=== PATIENT | female | born 1970 | race Caucasian/White ===

== ENCOUNTER 2016-11-28 02:04 | Emergency (ER) | payer BC, OTHER ==
[~2016-11-28] VITALS: Ht 167.6 cm; Wt 91.3 kg
[~2016-11-28 02:04] MED LIST: DULE200A INH; ORPH100T PO; PERC10TA27 PO; WELL150T PO
[2016-11-28 02:08] VITALS: BP 105/59; PULSE 71; RESP 16; TEMP 98.1; O2SAT 97
[2016-11-28] MEDS ORDERED: ALBU6.7H INH (02:22)
[2016-11-28] MEDS ORDERED: PRED5TAB PO (02:22)
--- NOTE | 2016-11-28 02:22 | PD ---
HPI Chief Complaint: Systems Operator Problem/Complaint Time Seen by Provider: 02:12 Travel History International Travel<30 days: No Contact w/Intl Traveler<30days: No History of Present Illness HPI patient is a 46-year-old female presents emergency department for evaluation of vaginal bleeding for the past month. Patient states that her periods are fairly regular but this last was been going on for the past month she states over the past 2 days she is bleeding through a tampon and pad approximately every hour. She states that she's also been feeling somewhat weak. Denies any presyncopal symptoms. Denies possibility for . Denies any fever. Does not know what age her mother went through menopause. PFSH Past Medical History Asthma: Yes Autoimmune Disease: No Anxiety: No Depression: Yes Cancer: No Cardiovascular Problems: No COPD: Yes ("CHRONIC BRONCHITIS") Cerebrovascular Accident: Yes (tia's) Diminished Hearing: No Endocrine: No Fibromyalgia: Yes Gastrointestinal Disorders: Yes (GASTROPARESES) GERD: Yes Genitourinary: No Headaches: Yes Immune Disorder: No Musculoskeletal: Yes Neurologic: Yes Psychiatric: Yes Reproductive: No Immunizations Current: Yes Migraines: Yes Ulcer: Yes (GASTRIC) : 3 Para: 2 Miscarriage: 1 Ovarian Cysts: Yes Tubal Ligation: Yes Past Surgical History Gynecologic Surgery: Yes (TUBAL) Other Surgery: Yes Social History Alcohol Use: No Tobacco Use: No Substance Use: No Allergies-Medications (Allergen,Severity, Reaction): Coded Allergies: morphine (Unverified Allergy, Intermediate, HIVES, 11/28/16) . *MDRO Multi-Drug Resistant Organism (Unverified Allergy, Unknown, 11/28/16) MRSA 2013 Uncoded Allergies: HYDROCODINE (Allergy, Intermediate, 12/18/14) . Reported Meds & Prescriptions Reported Meds & Active Scripts Active Reported Proventil Hfa 6.7 GM Inh (Albuterol Sulfate) 90 Mcg/Act Aer 2 Puff INH Q6H PRN Prednisone 5 Mg Tab 5 Mg PO DAILY Review of Systems Except as stated in HPI: all other systems reviewed are Neg Physical Exam Narrative GENERAL: Well-developed well-nourished no obvious distress SKIN: Focused skin assessment warm/dry. HEAD: Atraumatic. Normocephalic. EYES: Pupils equal and round. No scleral icterus. No injection or drainage. ENT: No nasal bleeding or discharge. Mucous membranes pink and moist. NECK: Trachea midline. No JVD. CARDIOVASCULAR: Regular rate and rhythm. No murmur appreciated. RESPIRATORY: No accessory muscle use. Clear to auscultation. Breath sounds equal bilaterally. GASTROINTESTINAL: Abdomen soft, non-tender, nondistended. Hepatic and splenic margins not palpable. GENITOURINARY: Recommended to but strongly deferred by patient. MUSCULOSKELETAL: No obvious deformities. No clubbing. No cyanosis. No edema. NEUROLOGICAL: Awake and alert. No obvious cranial nerve deficits. Motor grossly within normal limits. Normal speech. PSYCHIATRIC: Appropriate mood and affect; insight and judgment normal. Data Data Last Documented VS Vital Signs Date Time Temp Pulse Resp B/P (MAP) Pulse Ox O2 Delivery O2 Flow Rate FiO2 11/28/16 04:12 72 18 98 11/28/16 04:05 Room Air 11/28/16 02:08 98.1 Orders Orders Urinalysis - C+S If Indicated (11/28/16 02:12) Ed Urine Pregnancytest Poc (11/28/16 02:12) Complete Blood Count With Diff (11/28/16 02:12) Basic Metabolic Panel (Bmp) (11/28/16 02:12) Labs Laboratory Tests Test 11/28/16 02:35 11/28/16 03:00 White Blood Count 6.2 TH/MM3 Red Blood Count 4.19 MIL/MM3 Hemoglobin 12.5 GM/DL Hematocrit 37.1 % Mean Corpuscular Volume 88.5 FL Mean Corpuscular Hemoglobin 29.8 PG Mean Corpuscular Hemoglobin Concent 33.7 % Red Cell Distribution Width 15.3 % Platelet Count 306 TH/MM3 Mean Platelet Volume 7.4 FL Neutrophils (%) (Auto) 47.5 % Lymphocytes (%) (Auto) 39.8 % Monocytes (%) (Auto) 10.4 % Eosinophils (%) (Auto) 1.4 % Basophils (%) (Auto) 0.9 % Neutrophils # (Auto) 2.9 TH/MM3 Lymphocytes # (Auto) 2.5 TH/MM3 Monocytes # (Auto) 0.6 TH/MM3 Eosinophils # (Auto) 0.1 TH/MM3 Basophils # (Auto) 0.1 TH/MM3 CBC Comment DIFF FINAL Differential Comment Blood Urea Nitrogen 21 MG/DL Creatinine 1.10 MG/DL Random Glucose 93 MG/DL Calcium Level 7.8 MG/DL Sodium Level 139 MEQ/L Potassium Level 4.3 MEQ/L Chloride Level 106 MEQ/L Carbon Dioxide Level 29.3 MEQ/L Anion Gap 4 MEQ/L Estimat Glomerular Filtration Rate 53 ML/MIN Urine Color YELLOW Urine Turbidity CLEAR Urine pH 5.5 Urine Specific Wrights 1.027 Urine Protein NEG mg/dL Urine Glucose (UA) NEG mg/dL Urine Ketones NEG mg/dL Urine Occult Blood MOD Urine Nitrite NEG Urine Bilirubin NEG Urine Leukocyte Esterase NEG Urine RBC 10-14 /hpf Urine Squamous Epithelial Cells 0-5 /hpf Urine Amorphous Sediment SMALL Urine Mucus FEW /lpf Microscopic Urinalysis Comment CULT NOT INDICATED MDM Medical Decision Making Medical Screen Exam Complete: Yes Emergency Medical Condition: Yes Differential Diagnosis anemia, dysfunctional uterine bleeding, perimenopausal bleeding, Narrative Course patient roomed emergency department, no anemia on blood work, test negative. Discussed need for follow-up with an [facility] for further workup. Discussed that she will need cancer workup prior to starting any oral contraceptives which may be helpful to control her bleeding. She verbalized understanding and agreement. She stable for discharge at this time. Diagnosis Primary Impression: DUB (dysfunctional uterine bleeding) Referrals: Rosemary Garcia MD Disposition: 01 DISCHARGE HOME Condition: Stable Pravin Cardona MD Nov 28, 2016 02:22
[2016-11-28 02:48] LABS: AUTOMATED NEUTROPHIL # 2.9 TH/MM3 (1.8-7.7); BASOPHIL # 0.1 TH/MM3 (0-0.2); BASOPHIL % 0.9 % (0.0-2.0); EOSINOPHIL # 0.1 TH/MM3 (0-0.4); EOSINOPHIL % 1.4 % (0.0-4.0); HEMATOCRIT 37.1 % (35.0-46.0); HEMO FLAGS DIFF FINAL; LYMPH % 39.8 % (9.0-44.0); LYMPHOCYTE # 2.5 TH/MM3 (1.0-4.8); MEAN CELL VOLUME 88.5 FL (80.0-100.0); MEAN CORPUSCULAR HEMOGLOBIN 29.8 PG (27.0-34.0); MEAN CORPUSCULAR HGB CONC 33.7 % (32.0-36.0); MONO % 10.4 % (0.0-8.0); NEUT % 47.5 % (16.0-70.0); PLATELET COUNT 306 TH/MM3 (150-450); RED BLOOD COUNT 4.19 MIL/MM3 (4.00-5.30); RED CELL DISTRIBUTION WIDTH 15.3 % (11.6-17.2); WHITE BLOOD COUNT 6.2 TH/MM3 (4.0-11.0)
[2016-11-28 02:55] LABS: POTASSIUM 4.3 MEQ/L (3.5-5.1)
[2016-11-28 02:58] LABS: BICARBONATE 29.3 MEQ/L (21.0-32.0)
[2016-11-28 03:35] LABS: BLOOD, URINE MOD (NEG); GLUCOSE,URINE NEG (NEG); KETONE, URINE NEG (NEG); NITRITE,URINE NEG (NEG); PH, URINE 5.5 (5.0-8.5)
[2016-11-28 03:45] LABS: URINE COLOR YELLOW (YELLW/STRAW)
[2016-11-28 03:46] LABS: MUCUS URINE FEW /lpf (OCC); SQUAMOUS EPITHELIAL CELL URINE 0-5 /hpf (0-5)
[2016-11-28 03:48] LABS: COMMENT (UR) CULT NOT INDICATED; CULTURE IF INDICATED CULT NOT INDICATED
[2016-11-28 04:05] VITALS: BP 110/56; PULSE 72; RESP 18; O2SAT 98
== END 2016-11-28 04:15 | disposition home or self-care (01) ==
LOC: PHED 02:04
DX: N93.8 Other specified abnormal uterine and vaginal bleeding (principal); R53.1 Weakness; Z87.09 Personal history of other diseases of the respiratory system; Z86.59 Personal history of other mental and behavioral disorders; Z86.79 Personal history of other diseases of the circulatory system; Z87.39 Personal history of other diseases of the musculoskeletal system and connective tissue; Z87.19 Personal history of other diseases of the digestive system; Z86.69 Personal history of other diseases of the nervous system and sense organs
CPT/HCPCS: 80048; 81001; 84703; 85025; 99283